=== PATIENT | female | born 1975 | race African-American/Black ===

== ENCOUNTER 2016-12-21 08:39 | Emergency (ER) | payer SELFPAY ==
[~2016-12-21] VITALS: Ht 172.7 cm; Wt 113.4 kg
[2016-12-21] MEDS ORDERED: HYDROCHLOROTHIA25 MG ORAL (08:52)
[2016-12-21] MEDS ORDERED: CARTIA XT180 MG ORAL (08:52)
[2016-12-21 09:00] VITALS: BP 192/99
[2016-12-21] MEDS ORDERED: Oxymetazoline 0.05% Na Spray 30ml NASAL ONE ×2 (09:14→09:30)
[2016-12-21] MEDS ORDERED: KEFLEX500 MG ORAL (11:10)
[2016-12-21] MEDS ORDERED: Diltiazem CD 180mg cap ORAL ONE (11:15)
[2016-12-21 11:29] VITALS: BP 164/105
--- NOTE | 2016-12-21 13:04 | Emergency Room Report ---
History of Present Illness General Chief Complaint: Nosebleed Source: Patient Present Illness HPI 41-year-old female presents to ED for evaluation. States that this morning she started having a nosebleed. States she blew her nose and she noticed immediate bleeding from her nose. Denies trauma. Denies any blood thinners. Notes bleeding from both nostrils. In triage blood pressure is high and patient is tachycardic. Patient states she takes diltiazem and hydrochlorothiazide for her blood pressure. Did not take this morning. Denies chest pain or shortness of breath. Denies any headaches, dizziness. No other aggravating relieving factors. Denies any other associated symptom Allergies: Coded Allergies: No Known Allergies (Unverified , 12/21/16) Patient History Past Medical History: HTN Past Surgical History: none Pertinent Family History: none Social History: Denies: alcohol use, drug use, smoking Last Menstrual Period: ON PERIOD Now: No Immunizations: UTD Reviewed Nursing Documentation: PMH: Agreed, PSxH: Agreed Nursing Documentation-PMH Past Medical History: No History, Except For Hx Hypertension: Yes Review of Systems All Other Systems: negative except mentioned in HPI Physical Exam Vital Signs Date Time Temp Pulse Resp B/P Pulse Ox O2 Delivery O2 Flow Rate FiO2 12/21/16 08:45 100.0 112 20 185/96 98 Room Air Sp02 EP Interpretation: reviewed, normal General Appearance: no apparent distress, alert, GCS 15, non-toxic Head: normocephalic, atraumatic Eyes: bilateral eye PERRL, bilateral eye normal inspection ENT: hearing grossly normal, normal pharynx, no angioedema, normal voice, other - diffuse bleeding from bilateral nostrils. unable to localize source of bleeding Neck: full range of motion, supple/symm/no masses Respiratory: chest non-tender, lungs clear, normal breath sounds, speaking full sentences Cardiovascular #1: regular rate, rhythm, no edema Cardiovascular #2: 2+ carotid (R), 2+ carotid (L), 2+ radial (R), 2+ radial (L) , 2+ dorsalis pedis (R), 2+ dorsalis pedis (L) Gastrointestinal: normal bowel sounds, non tender, soft, non-distended, no guarding, no rebound Rectal: deferred Genitourinary: normal inspection, no CVA tenderness Musculoskeletal: back normal, gait/station normal, normal range of motion, non- tender Neurologic: alert, oriented x3, responsive, motor strength/tone normal, sensory intact, speech normal Psychiatric: judgement/insight normal, memory normal, mood/affect normal, no suicidal/homicidal ideation Reflexes: 3+ bicep (R), 3+ bicep (L), 3+ tricep (R), 3+ tricep (L), 3+ knee (R) , 3+ knee (L) Skin: normal color, no rash, warm/dry, well hydrated Lymphatic: no adenopathy Medical Decision Making Diagnostic Impression: Primary Impression: Epistaxis Additional Impression: Hypertension Qualified Codes: I10 - Essential (primary) hypertension ER Course 41-year-old female presents to ED with epistaxis from bilateral nostril. No trauma. hypertensive Differential-anterior epistaxis, posterior epistaxis, coagulopathy Patient placed on stretcher. After initial history, physical exam reveals female in no acute distress. Patient is actively bleeding from the bilateral nostrils. I am unable to identify whether the bleeding his anterior versus posterior as the bleeding is profuse. Patient is protecting her airway. Initially we applied pressure, patient kept her head tilted forward. No resolution on reassessment. I applied Afrin spray in both nostrils and continued pressure. On reassessment bleeding remained profuse. Rhino Rocket is placed in both nostrils and bleeding is now controlled. Patient is tachycardic and hypertensive. Patient did not take her medications this morning. Given diltiazem and hydrochlorothiazide in ER I discussed with patient that she will need ENT followup. Will need Rhino Rocket removed from her nose in 2-3 days Diagnoses-hypertension, epistaxis Stable and discharged to home with prescription for Keflex. Rhino Rocket in place. Followup with ENT. Return to ED if symptoms recur or worsen Last Vital Signs Date Time Temp Pulse Resp B/P Pulse Ox O2 Delivery O2 Flow Rate FiO2 12/21/16 11:29 100.3 118 19 164/105 100 Room Air Status: improved Disposition: HOME, SELF-CARE Condition: Stable Scripts Cephalexin* (KEFLEX*) 500 Mg Capsule 500 MG ORAL Q6H, #28 CAP 0 Refills Prov: JOSE DAVID PERERA M.D. 12/21/16 Referrals: Jamarcus Tripp MD, [facility] Patient Instructions: Nosebleed, [id number] Additional Instructions: have rhino rockets removed in 3 days. followup with ENT JOSE DAVID PERERA M.D. December 21, 2016 13:04
== END 2016-12-21 11:32 | disposition home or self-care (01) ==
LOC: EMR 09:22
DX: R04.0 Epistaxis (principal); I10 Essential (primary) hypertension; R00.0 Tachycardia, unspecified
CPT/HCPCS: 99282